=== PATIENT | female | born 1970 | race American Indian/Alaskan Native ===

== ENCOUNTER 2018-08-16 14:12 | Inpatient (IN) | payer OTHER ==
[2018-08-16 15:21] LABS: Basophils % (Auto) 0.6 % (0.0-1.8); Eosinophils # (Auto) 0.1 K/mm3 (0.0-0.4); Eosinophils % (Auto) 2.2 % (0.0-4.3); Hematocrit 37.9 % (30.3-42.9); Hemoglobin 12.1 gm/dl (10.1-14.3); Lymphocytes # (Auto) 2.5 K/mm3 (1.2-5.4); Lymphocytes % (Auto) 41.8 % (13.4-35.0); Mean Corpuscular HGB Conc 32 % (30-34); Mean Corpuscular Volume 88 fl (79-97); Monocytes # (Auto) 0.4 K/mm3 (0.0-0.8); Monocytes % (Auto) 6.6 % (0.0-7.3); Platelet Count 341 K/mm3 (140-440); Red Blood Count 4.31 M/mm3 (3.65-5.03)
[2018-08-16 15:29] LABS: INR 0.9 (0.87-1.13)
[2018-08-16 15:34] LABS: Alanine Aminotransferase 27 units/L (7-56); Albumin 4.3 g/dL (3.9-5); BUN/Creatinine Ratio 13; Blood Urea Nitrogen 8 mg/dL (7-17); Calcium 9.3 mg/dL (8.4-10.2); Hemolysis Index 7
--- NOTE | 2018-08-16 16:10 | XRay Report ---
FINAL REPORT EXAM: XR CHEST 1V AP HISTORY: Chest Pain TECHNIQUE: AP portable view of the chest PRIORS: None. FINDINGS: Lines, tubes, and devices: N/A Lungs and pleura: Trachea is normal in position. Lungs are clear of infiltrate, pleural effusion, vas cular congestion, or pneumothorax. Cardiomediastinal silhouette: Cardiac and mediastinal silhouettes are unremarkable. Other: Bony structures are intact. IMPRESSION: No acute cardiopulmonary process seen.
[2018-08-16] MEDS ORDERED: BENADRYL IV ONE (17:18)
[2018-08-16] MEDS ORDERED: NACL 0.9% 1000 ML 1,000 ML IV ONE (17:18)
[2018-08-16] MEDS ORDERED: REGLAN IV ONE (17:18)
[2018-08-16] MEDS ORDERED: TORADOL IV ONE (17:18)
--- NOTE | 2018-08-16 18:05 | Emergency Department Report ---
ED Chest Pain HPI - General Chief Complaint: Chest Pain Stated Complaint: CHEST PAIN Time Seen by Provider: 08/16/18 15:26 Source: patient, family, EMS Mode of arrival: Ambulatory Limitations: No Limitations - History of Present Illness Initial Comments: 48-year-old female with a past medical history of obesity, hypertension, elevated cholesterol, borderline diabetes, and hypothyroidism presents to the hospital with complaints of headache, difficulty speaking, and chest pain. The last 2 weeks patient has had a fairly constant headache to the top of a headache described as throbbing. No aggravating or remitting factor support it. Patient complains of some pain behind her eyes without photophobia. She has a history of migraines which are usually frontal and associated with photophobia. About 3 AM patient about difficulty speaking, lightheadedness, generalized weakness, and overall not feeling well. Patient also experienced aching chest pain that radiates to left arm with mild shortness of breath. Pt denies history of complex migraines or stroke. Severity scale (0 -10): 5 - Related Data Allergies Allergy/AdvReac Type Severity Reaction Status Date / Time morphine AdvReac Rash Verified 08/16/18 16:11 Heart Score - HEART Score History: Slightly suspicious EKG: Normal Age: 45-65 Risk factors: > 3 risk factors or hx of atherosclerotic disease Troponin: < normal limit HEART Score: 3 ED Review of Systems ROS: Stated complaint: CHEST PAIN Other details as noted in HPI Comment: All other systems reviewed and negative ED Past Medical Hx - Past Medical History Previous Medical History?: Yes Hx Hypertension: Yes Hx Headaches / Migraines: Yes Additional medical history: Hypothyroidism. Degenerative disc - Surgical History Additional Surgical History: hysterectomy. sinus cavity. x 3 - Social History Smoking Status: Never Smoker ED Physical Exam - General Limitations: No Limitations - Other Other exam information: General: No limitations, patient is alert in no acute distress Head exam: Atraumatic, normocephalic Eyes exam: Normal appearance, pupils equal reactive to light, extraocular movements intact ENT: Moist mucous membrane, normal oropharynx Neck exam: Normal inspection, full range of motion, no meningismus nontender Respiratory exam: Clear to auscultation bilateral, no wheezes, rales, crackles Cardiovascular: Normal rate and rhythm, reproducible sternal chest wall tenderness Abdomen: Soft, nondistended, and nontender, with normal bowel sounds, no rebound, or guarding Extremity: Full range of motion normal inspection no deformity Back: Normal Inspection, full range of motion, no tenderness Neurologic: Alert, oriented x3, patient slow and interrupted speech however, and right arm numbness to palpation. Psychiatric: normal affect, normal mood Skin: Warm, dry, intact ED Course Vital Signs 08/16/18 08/16/18 08/16/18 14:20 14:35 14:45 Temperature Pulse Rate 68 68 Respiratory 16 15 Rate Blood Pressure 115/74 115/74 O2 Sat by Pulse 99 98 97 Oximetry 08/16/18 08/16/18 08/16/18 15:01 15:15 15:30 Temperature Pulse Rate 69 66 64 Respiratory 14 13 16 Rate Blood Pressure 115/74 115/74 120/71 O2 Sat by Pulse 97 98 96 Oximetry 08/16/18 08/16/18 08/16/18 15:45 16:00 16:11 Temperature Pulse Rate 64 62 Respiratory 17 16 16 Rate Blood Pressure 120/71 113/65 O2 Sat by Pulse 97 98 99 Oximetry 08/16/18 08/16/18 08/16/18 16:30 17:00 17:04 Temperature 98.3 F Pulse Rate 67 64 Respiratory 14 15 Rate Blood Pressure 100/58 96/66 O2 Sat by Pulse 98 Oximetry ED Medical Decision Making - Lab Data Result diagrams: 08/16/18 15:02 08/16/18 15:02 Lab Results 08/16/18 08/16/18 08/16/18 Range/Units 15:02 15:02 15:02 WBC 6.0 (4.5-11.0) K/mm3 RBC 4.31 (3.65-5.03) M/mm3 Hgb 12.1 (10.1-14.3) gm/dl Hct 37.9 (30.3-42.9) % MCV 88 (79-97) fl MCH 28 (28-32) pg MCHC 32 (30-34) % RDW 13.0 L (13.2-15.2) % Plt Count 341 (140-440) K/mm3 Lymph % (Auto) 41.8 H (13.4-35.0) % [place] % (Auto) 6.6 (0.0-7.3) % Eos % (Auto) 2.2 (0.0-4.3) % Baso % (Auto) 0.6 (0.0-1.8) % Lymph # 2.5 (1.2-5.4) K/mm3 [place] # 0.4 (0.0-0.8) K/mm3 Eos # 0.1 (0.0-0.4) K/mm3 Baso # 0.0 (0.0-0.1) K/mm3 Seg Neutrophils % 48.8 (40.0-70.0) % Seg Neutrophils # 2.9 (1.8-7.7) K/mm3 PT 12.5 (12.2-14.9) Sec. INR 0.90 (0.87-1.13) APTT 20.0 L (24.2-36.6) Sec. Sodium 140 (137-145) mmol/L Potassium 3.6 (3.6-5.0) mmol/L Chloride 101.6 (98-107) mmol/L Carbon Dioxide 28 (22-30) mmol/L Anion Gap 14 mmol/L BUN 8 (7-17) mg/dL Creatinine 0.6 L (0.7-1.2) mg/dL Estimated GFR > 60 ml/min BUN/Creatinine Ratio 13 % Glucose 124 H (65-100) mg/dL Calcium 9.3 (8.4-10.2) mg/dL Total Bilirubin 0.20 (0.1-1.2) mg/dL AST 32 (5-40) units/L ALT 27 (7-56) units/L Alkaline Phosphatase 93 (35-129) units/L Troponin T < 0.010 (0.00-0.029) ng/mL Total Protein 7.8 (6.3-8.2) g/dL Albumin 4.3 (3.9-5) g/dL Albumin/Globulin Ratio 1.2 % - EKG Data -: EKG Interpreted by Ia EKG shows normal: sinus rhythm, axis (qrs -15), QRS complexes (qrsd 100), ST-T waves (no stemi) Rate: normal - Radiology Data Radiology results: report reviewed ct head: naf cxr: naf - Medical Decision Making Patient has had a headache with some difficulty speaking. Differential includes CVA and complex migraine. Patient states his headache is atypical for her typical migraine and she has never had neurologic complaints with headache. CT head unremarkable. Patient provided Benadryl, Reglan, Toradol, and normal saline. We'll admit to the hospitalist for further management minute patient requires an MRI or further stroke evaluation. Sternal chest pain is reproducible with normal EKG and normal cardiac enzyme. ASA given as well as pepcid - Differential Diagnosis mi, pe, atypical chest pain, costochondritis, complex migraine, Critical Care Time: No Critical care attestation.: If time is entered above; I have spent that time in minutes in the direct care of this critically ill patient, excluding procedure time. ED Disposition Clinical Impression: Difficulty speaking, Persistent headaches, Obesity, Costochondral chest pain Disposition: OP ADMIT IP TO THIS HOSP Is pt being admited?: Yes Condition: Stable Time of Disposition: 19:27 (Dr. Ortiz/Hospitalist) - Assessment Assessment Interval: Baseline - Level of Consciousness 1a. Level of Consciousness: alert/keenly responsive - LOC Questions 1b. LOC Questions: answers both correctly - LOC Command 1c. LOC Commands: performs tasks correctly - Best Gaze 2. Best Gaze: normal - Visual 3. Visual: no visual loss - Facial Palsy 4. Facial Palsy: normal symmetrical movement - Motor Arm 5b. Motor Arm Right: no drift 5a. Motor Arm Left: no drift - Motor Leg 6b. Motor Leg Right: no drift 6a. Motor Leg Left: no drift - Limb Ataxia 7. Limb Ataxia: absent - Sensory 8. Sensory: mild/moderate sensory loss - Best Language 9. Best Language: no aphasia - Dysarthria 10. Dysarthria: mild/moderate dysarthria - Extinction and Inattention 11. Extinction/Inattention: no abnormality - Scoring Total Score: 2 Stroke Severity: Minor Stroke
--- NOTE | 2018-08-16 18:37 | Cat Scan Report ---
FINAL REPORT EXAM: CT HEAD/BRAIN WO CON HISTORY: headache, slurred speech TECHNIQUE: Standard unenhanced CT of the head at 5.0 millimeter axial increments. PRIORS: None. FINDINGS: The ventricular system is normal in size and configuration. There is no evidence for parenchymal volu me loss. There is no evidence for mass lesion, mass effect, midline shift, acute intracranial hemorrhage, or a cute ischemia/ infarction. No evidence for acute skull fracture is seen. No abnormality in the overlying scalp soft tissues is seen. Visualized paranasal sinuses are clear. There is a metallic focus, likely a piercing piercing, in the anterior left ear. IMPRESSION: Negative CT of the head. No acute intracranial process noted.
[2018-08-16] MEDS ORDERED: BENADRYL ONE (19:29)
[2018-08-16] MEDS ORDERED: REGLAN ONE (19:30)
[2018-08-16] MEDS ORDERED: TORADOL ONE (19:30)
[2018-08-16] MEDS ORDERED: PEPCID IV ONE (19:35)
[2018-08-16] MEDS ORDERED: ASPIRIN PO ONE (19:35)
[2018-08-16] MEDS ORDERED: TYLENOL PO PRN (21:28)
[2018-08-16] MEDS ORDERED: MILK OF MAGNESIA PO PRN (21:28)
[2018-08-16] MEDS ORDERED: PHENERGAN PR PRN (21:28)
[2018-08-16] MEDS ORDERED: ZOFRAN IV PRN (21:28)
[2018-08-16] MEDS ORDERED: APRESOLINE IV PRN (21:28)
[2018-08-16] MEDS ORDERED: SODIUM CHLORIDE FLUSH SYRINGE 10 ML IV PRN (21:28)
[2018-08-16] MEDS ORDERED: REGLAN IV PRN (21:28)
[2018-08-16] MEDS ORDERED: DULCOLAX PR PRN (21:28)
--- NOTE | 2018-08-16 21:28 | History and Physical Report ---
History of Present Illness Date of examination: 08/16/18 Date of admission: 08/16/18 19:36 History of present illness: 48-year-old woman with a history of hypertension, diabetes, hyperlipidemia, hypothyroidism anxiety, depression comes emergency room because last night around 11:30 she felt as if she was going to pass out. She got up early this morning and noticed that she she had slurred speech, her legs felt weak and her face was drooping. Also complaining of chest pain in the epigastric area which she describes a constant aching pain, intensity 5/10, radiating to the left arm, cannot identify exacerbating factors. She admits to shortness of breath, no nausea vomiting, diaphoresis Review of systems Constitutional: no weight loss, chills, fever Ears, eyes, nose, mouth and throat: no nasal congestion, no nasal discharge, no sinus pressure, no vision change, no red eye. Neck: No neck pain or rigidity. Cardiovascular: no palpitations, chest pain Respiratory: no cough, shortness of breath Gastrointestinal: no hematochezia, abdominal pain Genitourinary : no frequency , no hematuria Musculoskeletal: no joint swelling or muscle ache Integumentary: no rash, no pruritis Neurological: no parathesias, no focal weakness Endocrine: no cold or heat intolerance, no polyuria or polydipsia Hematologic/Lymphatic: no easy bruising, no easy bleeding, no gland swelling Allergic/Immunologic: no urticaria, no angioedema. PAST MEDICAL HISTORY: hypertension, diabetes, hyperlipidemia, hypothyroidism, anxiety, depression PAST SURGICAL HISTORY: Hysterectomy, 3, back surgery SOCIAL HISTORY: Denies alcohol, drugs, tobacco FAMILY HISTORY: Hypertension Medications and Allergies Allergies Allergy/AdvReac Type Severity Reaction Status Date / Time morphine AdvReac Rash Verified 08/16/18 16:11 Home Medications Medication Instructions Recorded Confirmed Last Taken Type Atenolol [Tenormin] 100 mg PO QDAY 08/16/18 08/16/18 08/16/18 History FLUoxetine HCL [PROzac] 40 mg PO QDAY 08/16/18 08/16/18 08/16/18 History Levothyroxine Sodium [Synthroid] 25 mcg PO QAM 08/16/18 08/16/18 08/16/18 History Methocarbamol [Robaxin TAB] 750 mg PO TID PRN 01/10/0308/16/18 08/15/18 History Omeprazole 20 mg PO QDAY 08/16/18 08/16/18 Unknown History Simvastatin [Zocor] 20 mg PO HS 08/16/18 08/16/18 08/15/18 History Topiramate [Topamax] 100 mg PO HS 08/16/18 08/16/18 08/15/18 History hydroCHLOROthiazide [HCTZ] 25 mg PO QDAY 08/16/18 08/16/18 08/16/18 History traZODone [Desyrel] 100 mg PO QHS 08/16/18 08/16/18 Unknown History Exam - Physical Exam Narrative exam: General Apperance: The patient lying in bed, breathing comfortable HEENT: Normocephalic, atraumatic. Pupils equally round and reactive to light, EOMI, no sclericterus or JVD or thyromegaly or nodule. , no carotid bruit, mucous membranes moist, no exudate or erythema Heart: S1-S2, regular is rhythm Lungs: Clear to auscultation bilaterally, breathing comfortable Abdomen: Positive bowel sounds, soft, nontender, nondistended, no organomegaly Extremities: No edema cyanosis clubbing Skin: sacral and lower extremity ulcers, no rash, nodule, warm and dry Neuro: cranial nerves 2-12 intact, speech is fluent, motor/sensory intact - Constitutional Vitals: Temp Pulse Resp BP Pulse Ox 98.3 F 70 16 109/71 97 08/16/18 17:04 08/16/18 19:40 08/16/18 19:40 08/16/18 19:40 08/16/18 19:40 Results - Labs CBC & Chem 7: 08/16/18 15:02 08/16/18 15:02 Labs: Abnormal lab results 08/16/18 08/16/18 08/16/18 Range/Units 15:02 15:02 15:02 RDW 13.0 L (13.2-15.2) % Lymph % (Auto) 41.8 H (13.4-35.0) % APTT 20.0 L (24.2-36.6) Sec. Creatinine 0.6 L (0.7-1.2) mg/dL Glucose 124 H (65-100) mg/dL - Imaging and Cardiology EKG: image reviewed CT Scan - head: report reviewed Assessment and Plan Assessment TIA Chest pain, rule out ACS Hypertension Diabetes Hyperlipidemia Hypothyroidism Depression Anxiety Plan Admit to medicine Obtain MRI of the head, echo, carotid Doppler Start aspirin, statin, check cardiac enzymes, stress test Check fingersticks initiate insulin sliding scale IV hydralazine as needed for blood pressure control Neuro checks,swallow screen Consults neurology, physical and occupational therapy DVT prophylaxis
[2018-08-16] MEDS ORDERED: PERCOCET 5/325 PO PRN (21:33)
[2018-08-16] MEDS ORDERED: PRAVACHOL PO SCH (22:00)
[2018-08-17 00:07] LABS: Creatine Kinase MB 3.1 ng/mL (0.0-4.0)
[2018-08-17] MEDS ORDERED: SYNTHROID PO SCH (06:00)
[2018-08-17 06:57] LABS: Chol/HDL Ratio 4.51 %
[2018-08-17 07:30] VITALS: BP 110/41
[2018-08-17] MEDS ORDERED: PROzac PO SCH (10:00)
[2018-08-17] MEDS ORDERED: ASPIRIN PO SCH (10:00)
[2018-08-17] MEDS ORDERED: PROTONIX PO SCH (10:00)
--- NOTE | 2018-08-17 11:50 | Magnetic Resonance Report ---
MRI OF THE BRAIN WITHOUT CONTRAST: HISTORY: Stroke PROCEDURE: Multiplanar, multisequence MR imaging of the brain without IV contrast was performed. FINDINGS: Compared to CT head performed 08/16/18. The brain parenchyma signal intensity and its young white interface are within normal limits on all sequences. No evidence for acute ischemia, hemorrhage or mass. No chronic infarct or extra-axial fluid collection. The midline structures are central. The basal cisterns are patent. Normal ventricular size. The orbital cavities and sella turcica demonstrate no abnormality. The visualized paranasal sinuses and mastoid air cells are well aerated. IMPRESSION: Unremarkable non-enhanced MRI of the brain.
--- NOTE | 2018-08-17 13:21 | Discharge Summary ---
Providers - Providers Date of Admission: 08/16/18 19:36 Attending physician: DAWN MCKNIGHT MD 08/16/18 21:29 Occupational Therapy Evaluate and Treat [CONS] Routine Comment: Reason For Exam: Neuro deficits Physical Therapy Evaluation and Treat [CONS] Routine Comment: Reason For Exam: Neuro deficits 08/17/18 10:19 Consult to Physician [CONS] Routine Comment: Consulting Provider: POLINA NERI Physician Instructions: Reason For Exam: TIA Primary care physician: [facility] Hospitalization Reason for admission: near syncope Condition: Stable Hospital course: 48-year-old woman with a history of hypertension, diabetes, hyperlipidemia, hypothyroidism anxiety, depression comes emergency room because last night around 11:30 she felt as if she was going to pass out. She got up early this morning and noticed that she she had slurred speech, her legs felt weak and her face was drooping. Also complaining of chest pain in the epigastric area which she describes a constant aching pain, intensity 5/10, radiating to the left arm, cannot identify exacerbating factors. She admits to shortness of breath, no nausea vomiting, diaphoresis. Patient was seen by neurology and underwent a stress test which was normal. Recommendation was made for patient to meet with Neurology outpatient and also cardiology for possible event monitoring. We started the patient on ASA and encouraged compliance of the statin that she takes. TIA Chest pain, rule out ACS Headache. Hypertension Diabetes Hyperlipidemia Hypothyroidism Depression Anxiety Disposition: DC-01 TO HOME OR SELFCARE Time spent for discharge: 35 mins Core Measure Documentation - Palliative Care Palliative Care/ Comfort Measures: Not Applicable - Core Measures Any of the following diagnoses?: none Exam - Constitutional Vitals: Temp Pulse Resp BP Pulse Ox 98.3 F 65 17 110/41 96 08/17/18 07:29 08/17/18 10:00 08/17/18 12:36 08/17/18 07:29 08/17/18 07:29 General appearance: Present: no acute distress, well-nourished - EENT Eyes: Present: PERRL, EOM intact - Neck Neck: Present: supple, normal ROM - Respiratory Respiratory effort: normal Respiratory: bilateral: CTA - Cardiovascular Rhythm: regular Heart Sounds: Present: S1 & S2. Absent: systolic murmur, diastolic murmur - Extremities Extremities: no ischemia, pulses intact, pulses symmetrical, No edema, normal temperature Peripheral Pulses: within normal limits - Abdominal General gastrointestinal: Present: soft, non-tender, non-distended, normal bowel sounds - Integumentary Integumentary: Present: clear, warm, dry - Musculoskeletal Musculoskeletal: strength equal bilaterally - Psychiatric Psychiatric: appropriate mood/affect, intact judgment & insight, memory intact, cooperative - Neurologic Neurologic: CNII-XII intact - Allied Health Allied health notes reviewed: nursing Plan Activity: advance as tolerated, fall precautions Diet: low fat Special Instructions: record daily BP diary Follow up with: PRIMARY CAREMD [Primary Care Provider] - 3-5 Days RUTH HOUSE MD [Staff Physician] - 7 Days Prescriptions: RX: Aspirin [Aspirin EC] 81 mg PO QDAY #30 tablet.
--- NOTE | 2018-08-17 13:25 | Consultation ---
History of Present Illness Consult date: 08/17/18 Requesting physician: RODRIGUEZ MARSHALL Reason for Consult: headache History of present illness: 48 yr old female with history of hypertension, hypothyroidism, depression, migraine headache, admitted last pm for symptoms of dizziness and weakness. Her main complaint at this time is headache which has gone on for 2 weeks and will not go away with over the counter meds. She has a history of migraine for which she takes Topomax daily. She has not had one for several months. She describes this headache as a pressure sensation behind her eyes and posteriorly. It is very different from her usual migraine. She denies photophobia and phonophobia with this headache. She denies tinnitus. There are no associated vision changes, no nausea or vomiting. She had mild chest pain and arm numbness when this began, these have resolved. Past History Past Medical History: hypertension, hypothyroidism, migraines Past Surgical History: , Other (back surgery) Social history: , lives with family. denies: smoking, alcohol abuse Family history: cancer, diabetes, hypertension Medications and Allergies Allergies Allergy/AdvReac Type Severity Reaction Status Date / Time morphine AdvReac Rash Verified 08/16/18 16:11 Home Medications Medication Instructions Recorded Confirmed Last Taken Type Atenolol [Tenormin] 100 mg PO QDAY 08/16/18 08/16/18 08/16/18 History FLUoxetine HCL [PROzac] 40 mg PO QDAY 08/16/18 08/16/18 08/16/18 History Levothyroxine Sodium [Synthroid] 25 mcg PO QAM 08/16/18 08/16/18 08/16/18 History Methocarbamol [Robaxin TAB] 750 mg PO TID PRN 08/16/18 08/16/18 08/15/18 History Omeprazole 20 mg PO QDAY 08/16/18 08/16/18 Unknown History Simvastatin [Zocor] 20 mg PO HS 08/16/18 08/16/18 08/15/18 History Topiramate [Topamax] 100 mg PO HS 08/16/18 08/16/18 08/15/18 History hydroCHLOROthiazide [HCTZ] 25 mg PO QDAY 08/16/18 08/16/18 08/16/18 History traZODone [Desyrel] 100 mg PO QHS 08/16/18 08/16/18 Unknown History Aspirin [Aspirin EC] 81 mg PO QDAY #30 tablet. 08/17/18 Unknown Rx Active Meds: Active Medications Acetaminophen (Tylenol) 650 mg PO Q4H PRN PRN Reason: Pain, Mild (1-3) Last Admin: 08/17/18 05:26 Dose: 650 mg Documented by: Aspirin (Aspirin) 325 mg PO QDAY PENDING SALE TO [facility] Last Admin: 08/17/18 12:27 Dose: 325 mg Documented by: Bisacodyl (Dulcolax) 10 mg NM QDAY PRN PRN Reason: Constipation Fluoxetine HCl (Prozac) 40 mg PO QDAY PENDING SALE TO [facility] Last Admin: 08/17/18 12:27 Dose: 40 mg Documented by: Hydralazine HCl (Apresoline) 5 mg IV Q6H PRN PRN Reason: Keep SBP between 160-185 mm Hg Levothyroxine Sodium (Synthroid) 25 mcg PO QAM@0600 PENDING SALE TO [facility] Last Admin: 08/17/18 05:26 Dose: 25 mcg Documented by: Magnesium Hydroxide (Milk Of Magnesia) 30 ml PO Q4H PRN PRN Reason: Constipation Metoclopramide HCl (Reglan) 10 mg IV Q6H PRN PRN Reason: Nausea And Vomiting Ondansetron HCl (Zofran) 4 mg IV Q4H PRN PRN Reason: Nausea And Vomiting Oxycodone/Acetaminophen (Percocet 5/325) 1 tab PO Q4H PRN PRN Reason: Pain, Moderate (4-6) Last Admin: 08/17/18 12:32 Dose: 1 tab Documented by: Pantoprazole Sodium (Protonix) 20 mg PO QDAY PENDING SALE TO [facility] Last Admin: 08/17/18 12:27 Dose: 20 mg Documented by: Pravastatin Sodium (Pravachol) 40 mg PO QHS PENDING SALE TO [facility] Promethazine HCl (Phenergan) 25 mg NM Q6H PRN PRN Reason: Nausea And Vomiting Sodium Chloride (Sodium Chloride Flush Syringe 10 Ml) 10 ml IV PRN PRN PRN Reason: LINE FLUSH Last Admin: 08/16/18 22:09 Dose: 10 ml Documented by: Topiramate (Topamax) 100 mg PO HS PENDING SALE TO [facility] Trazodone HCl (Desyrel) 100 mg PO QHS PENDING SALE TO [facility] Review of Systems All systems: negative Physical Examination - Vital Signs Vital Signs: Vital Signs Pulse Resp BP Pulse Ox 68 16 115/74 99 08/16/18 14:20 08/16/18 14:20 08/16/18 14:20 08/16/18 14:20 - Physical Exam Narrative exam: Neurological exam - speech fluent, relates her history well. 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 Face symmetric, V-1 thru V-3 intact bilaterally Hearing intact, tongue midline. Motor - 5/5 bilaterally, upper and lower extremities. Reflexes - trace throughout. Sensory - intact to touch and pin, all 4 extremities. Cerebellar - FTN intact. Minna normal, fine finger movements normal. gait - normal. - Assessment Assessment Interval: Baseline - Level of Consciousness 1a. Level of Consciousness: alert/keenly responsive - LOC Questions 1b. LOC Questions: answers both correctly - LOC Command 1c. LOC Commands: performs tasks correctly - Best Gaze 2. Best Gaze: normal - Visual 3. Visual: no visual loss - Facial Palsy 4. Facial Palsy: normal symmetrical movement - Motor Arm 5b. Motor Arm Right: no drift - Motor Leg 6a. Motor Leg Left: no drift - Limb Ataxia 7. Limb Ataxia: absent - Sensory 8. Sensory: mild/moderate sensory loss - Best Language 9. Best Language: no aphasia - Dysarthria 10. Dysarthria: mild/moderate dysarthria - Extinction and Inattention 11. Extinction/Inattention: no abnormality Results - Laboratory Findings CBC and BMP: 08/16/18 15:02 08/16/18 15:02 Abnormal Lab Findings: Abnormal Labs 08/16/18 08/16/18 08/16/18 15:02 15:02 15:02 RDW 13.0 L Lymph % (Auto) 41.8 H APTT 20.0 L Creatinine 0.6 L Glucose 124 H Total Creatine Kinase Triglycerides HDL Cholesterol 08/16/18 08/17/18 23:36 06:16 RDW Lymph % (Auto) APTT Creatinine Glucose Total Creatine Kinase 582 H Triglycerides 160 H HDL Cholesterol 33 L Assessment and Plan 48 yr old female with hx of headache for 2 weeks, unresponsive to OTC meds. MRI brain is normal. Echocardiogram reveals an EF of 55 to 60%. This may be a chronic tension headache as it is different from the pattern of headache she gets with her migraines. Plan - Trial of muscle relaxant. Pt. is already on Robaxin prn. Trial of Robaxin 750 mg TID
--- NOTE | 2018-08-17 13:45 | Treadmill Report ---
PROCEDURE: Regular EKG exercise stress test. REFERRING PHYSICIAN: Nori Paniagua MD, Hospitalist. A 48-year-old obese, pleasant -[place] woman with a history of hypertension, type 2 diabetes mellitus, hyperlipidemia, anxiety and depression, underwent exercise stress test as per the standard Tc protocol. The baseline EKG was normal. The patient walked on the treadmill for a total of 5 minutes and 47 seconds. Peak heart rate is 150 (87% of predicted maximum heart rate) and peak systolic blood pressure is 181 mmHg. During exercise, the patient did not have any chest pain. There was no evidence of ischemia on the EKG. The patient was stable in recovery. CONCLUSIONS: 1. Fair exercise tolerance. 2. No chest pain. 3. No evidence of ischemia on EKG. 4. Negative stress test at 87% of predicted maximum heart rate. JOB# [id number] [facility]
--- NOTE | 2018-08-17 21:57 | Vascular Lab Report ---
FINAL REPORT EXAM: VL CAROTID DUPLEX BILAT HISTORY: stroke history of diabetes, hypertension TECHNIQUE: Ultrasound of the bilateral carotid arteries. Reported ICA Stenosis % per the NASCET crit eria. PRIORS: None. FINDINGS: PLAQUE DISTRIBUTION: No significant plaque formation is present bilaterally. VELOCITIES: RIGHT ICA peak systolic velocity (cm/sec): 99 ICA end diastolic velocity (cm/sec): 39 CCA peak systolic velocity (cm/sec): 107 ECA peak systolic velocity (cm/sec): 94 ICA/CCA systolic velocity ratio (cm/sec): 0.93 Right vertebral: Antegrade ICA STENOSIS ESTIMATION: <50 % LEFT ICA peak systolic velocity (cm/sec): 109 ICA end diastolic velocity (cm/sec): 45 CCA peak systolic velocity (cm/sec): 104 ECA peak systolic velocity (cm/sec): 77 ICA/CCA systolic velocity ratio (cm/sec): 1.06 Left vertebral: Antegrade ICA STENOSIS ESTIMATION: <50 % IMPRESSION: No clinically significant areas of stenosis noted bilaterally. ICA Stenosis % per the NASCET criteri a is <50 % on the right and <50 % on the left.
[2018-08-17] MEDS ORDERED: DESYREL PO SCH (22:00)
[2018-08-17] MEDS ORDERED: TOPAMAX PO SCH (22:00)
[2018-08-17] MEDS ORDERED: PRAVACHOL PO SCH (22:00)
== END 2018-08-17 15:15 | disposition home or self-care (01) | DRG 69 ==
LOC: ED 14:12 → 4A 19:36
PROVIDERS: ADMIT Internal Medicine; ATTEND Internal Medicine
DX: G45.9 Transient cerebral ischemic attack, unspecified (principal); Z68.41 Body mass index [BMI] 40.0-44.9, adult; R47.9 Unspecified speech disturbances; R07.1 Chest pain on breathing; E66.9 Obesity, unspecified; I10 Essential (primary) hypertension; F32.9 Major depressive disorder, single episode, unspecified; F41.9 Anxiety disorder, unspecified; E78.00 Pure hypercholesterolemia, unspecified; G43.909 Migraine, unspecified, not intractable, without status migrainosus; E03.9 Hypothyroidism, unspecified; Z88.5 Allergy status to narcotic agent; Z90.710 Acquired absence of both cervix and uterus; Z80.9 Family history of malignant neoplasm, unspecified; Z82.49 Family history of ischemic heart disease and other diseases of the circulatory system; Z83.3 Family history of diabetes mellitus
CPT/HCPCS: 36415; 70450; 70551; 71045; 80053; 80061; 82550; 82553; 84484; 85025; 85610; 85730; 93005; 93010; 93017; 93306; 93880; 96374; 96375; G0378; A9270-GY; J1200; J1885; J2765; J7030